=== PATIENT | female | born 1980 | race Caucasian/White ===

== ENCOUNTER → 2020-06-14 | Outpatient (CLI) | payer BC, OTHER ==
--- NOTE | 2020-06-15 08:22 | MM ---
Reason for exam: screening (asymptomatic). Baseline mammogram. History: Taking estrogen beginning at age 40. Taking progesterone beginning at age 40. Physical Findings: Nurse did not find any significant physical abnormalities on exam. MG Screening Mammo w CAD Bilateral CC and MLO view(s) were taken. The breast tissue is heterogeneously dense. This may lower the sensitivity of mammography. Focal asymmetry outer lower left breast posterior third position. These results were verbally communicated with the patient and result sheet given to the patient on 06/14/20. ASSESSMENT: Incomplete: need additional imaging evaluation, BI-RAD 0 RECOMMENDATION: Special view mammogram of the left breast.
--- NOTE | 2020-06-15 08:24 | MM ---
Reason for exam: additional evaluation requested from abnormal screening. History: Taking estrogen beginning at age 40. Taking progesterone beginning at age 40. Physical Findings: Breast exam preformed at baseline screening. MG Work Up Mamm w CAD LT Spot compression CC, spot compression MLO, and LM view(s) were taken of the left breast. The breast tissue is heterogeneously dense. This may lower the sensitivity of mammography. Focal asymmetry is less conspicuous. Ultrasound is recommended 6 o'clock left breast 8cm from nipple. These results were verbally communicated with the patient and result sheet given to the patient on 06/14/20. ASSESSMENT: Incomplete: need additional imaging evaluation, BI-RAD 0 RECOMMENDATION: Ultrasound of the left breast.
--- NOTE | 2020-06-15 08:37 | USB ---
Reason for exam: additional evaluation requested from abnormal screening. History: Taking estrogen beginning at age 40. Taking progesterone beginning at age 40. US Breast Workup Limited LT Technologist: Estrella Serrano Left limited breast ultrasound including focal area of concern, retroareolar and axilla demonstrates a 0.5 x 0.9 x 0.4cm cystic, septated lesion at 5 o'clock and duct ectasia at the nipple. Scanned 3-6 o'clock. These results were verbally communicated with the patient and result sheet given to the patient on 06/14/20. ASSESSMENT: Probably benign, BI-RAD 3 RECOMMENDATION: Follow-up diagnostic mammogram and ultrasound of the left breast in 6 months.
== END | disposition home or self-care (01) ==
LOC: RADMAMWWP 14:20
PROVIDERS: ATTEND Obstetrics & Gynecology
DX: Z12.31 Encounter for screening mammogram for malignant neoplasm of breast (principal); R92.2 Inconclusive mammogram; R92.8 Other abnormal and inconclusive findings on diagnostic imaging of breast
CPT/HCPCS: 77065; 77067

== ENCOUNTER → 2020-12-13 | Outpatient (CLI) | payer BC ==
[2020-12-13 11:47] LABS: Basophils % (A) 1 %; Eosinophils # (A) 0.1 k/uL (0-0.7); Eosinophils % (A) 1 %; HCT 40.8 % (34.0-46.0); HGB 13.4 gm/dL (11.4-16.0); Lymphocytes # (A) 1.4 k/uL (1.0-4.8); Lymphocytes % (A) 22 %; MCH 29.3 pg (25.0-35.0); MCHC 32.9 g/dL (31.0-37.0); MCV 89.1 fL (80.0-100.0); Mean Platelet Volume 7.4; Monocytes # (A) 0.4 k/uL (0-1.0); Monocytes % (A) 6 %; Neutrophils # (A) 4.2 k/uL (1.3-7.7); Neutrophils % (A) 68 %; Platelet Count 420 k/uL (150-450); RBC 4.58 m/uL (3.80-5.40); RDW 13.4 % (11.5-15.5); WBC 6.2 k/uL (3.8-10.6)
[2020-12-13 11:58] LABS: African American GFR (CKD) >90 (>60 ml/min/1.73 sqM); Anion Gap 9 mmol/L; Blood Urea Nitrogen 8 mg/dL (7-17); Calcium 8.9 mg/dL (8.4-10.2); Carbon Dioxide 22 mmol/L (22-30); Chloride 108 mmol/L (98-107); Glucose 82 mg/dL (74-99); Non-African American GFR(CKD) >90 (>60 ml/min/1.73 sqM); Potassium 4.2 mmol/L (3.5-5.1); Sodium 139 mmol/L (137-145)
== END | disposition home or self-care (01) ==
LOC: LABPAT 10:25
PROVIDERS: ATTEND Obstetrics & Gynecology
DX: Z01.812 Encounter for preprocedural laboratory examination (principal)
CPT/HCPCS: 80048; 85025; 86850; 86900; 86901

== ENCOUNTER 2020-12-21 05:35 | Observation (INO) | payer BC, OTHER ==
[2020-12-19 13:45] VITALS: BMI 26.2
--- NOTE | 2020-12-20 20:04 | P.HPOB ---
History of Present Illness H&P Date: 12/20/20 Chief Complaint: BRIGITTE III, Pelvic pain, uterine prolapse, rectocele This is a 40 y.o. female, 4, para 1, who presents for total vaginal hysterectomy with posterior vaginal colporrhaphy due to BRIGITTE III on colposcopy along with 1st degree uterine prolapse, symptomatic 2nd to 3rd degree rectocele, and pelvic pain. She has also consented to possible total abdominal hysterectomy with bilateral salpingectomy, possible bilateral oophorectomy. She complains of heavy irregular menses and pelvic pain. Her pelvic ultrasound showed uterus measuring 8 x 5.1 x 4.5 cm and left ovary with small simple cyst. She also complains of hot flashes, low back pain and anxiety. Her last pap showed ASCUS with +HR HPV and colposcopy showed BRIGITTE III. OB Hx: . History of 1 vaginal delivery. History of 2 miscarriages and 1 termination. 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 Not currently sexually active. Social Hx: Single. 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 Review of Systems Constitutional: Reports night sweats, Denies chills, Denies fever Eyes: denies blurred vision, denies pain Ears, nose, mouth and throat: Reports headache, Denies sore throat Cardiovascular: Denies chest pain, Denies shortness of breath Respiratory: Denies cough Gastrointestinal: Denies abdominal pain, Denies diarrhea, Denies nausea, Denies vomiting Genitourinary: Reports dysmenorrhea, Reports menorrhagia, Reports pelvic pain, Reports prolapse symptoms, Reports urinary frequency Menstruation: Reports menses variable, Reports period heavy Musculoskeletal: Reports low back pain Integumentary: Denies pruritus, Denies rash Neurological: Denies numbness, Denies weakness Psychiatric: Reports anxiety, Reports depression, Reports difficulty concentrating, Reports insomnia, Reports irritability, Reports mood swings Endocrine: Reports fatigue, Reports flushing Past Medical History Past Medical History: GERD/Reflux Additional Past Medical History / Comment(s): migraines, pt states dr checking into ? seizures., Hx of COVID 11/22/20-states fatigued breathing since-was on steroids., back pain. History of Any Multi-Drug Resistant Organisms: None Reported Additional Past Surgical History / Comment(s): d & c, colonoscopy Past Anesthesia/Blood Transfusion Reactions: No Reported Reaction Past Psychological History: Anxiety, Bipolar, Depression Smoking Status: Former smoker Past Alcohol Use History: None Reported Additional Past Alcohol Use History / Comment(s): quit smoking 5 years ago, social smoker. Past Drug Use History: Marijuana Additional Drug Use History / Comment(s): edible marijuana for anxiety. - Past Family History Father Family Medical History: Cancer Additional Family Medical History / Comment(s): skin cancer Mother Family Medical History: Cancer Additional Family Medical History / Comment(s): skin cancer Medications and Allergies Home Medications Medication Instructions Recorded Confirmed Type Acetaminophen [Tylenol Extra 500 mg PO DIRECTED 12/19/20 12/21/20 History Strength] Adrenal Support Supplement 200 mg PO DAILY 12/19/20 12/21/20 History Ascorbic Acid [Vitamin C] 500 mg PO DAILY 12/19/20 12/21/20 History Cholecalciferol (Vitamin D3) 250 mcg PO DAILY 12/19/20 12/21/20 History [Vitamin D3 (125 MCG = 5,000 IU)] Levocetirizine Dihydrochloride 5 mg PO DAILY 12/19/20 12/21/20 History [Xyzal] Progesterone, Micronized 2.5 mg PO HS 12/19/20 12/21/20 History [Progesterone] Red Yeast Rice 1,200 mg PO DAILY 12/19/20 12/21/20 History Topiramate [Topamax] 50 mg PO HS 12/19/20 12/21/20 History estradioL [estradioL (Once Weekly) 1 patch TRANSDERM WEEKLY 12/19/20 12/21/20 History 0.025 mg Patch] lamoTRIgine [LaMICtal] 250 mg PO HS 12/19/20 12/21/20 History Allergies Allergy/AdvReac Type Severity Reaction Status Date / Time No Known Allergies Allergy Verified 12/21/20 06:38 Exam Osteopathic Statement: *. No significant issues noted on an osteopathic structural exam other than those noted in the History and Physical/Consult. HEENT: within normal limits Heart: regular rate and rhythm Lungs: clear to auscultation bilaterally Abdomen: soft, non-tender Pelvic: uterus retroverted, grade 1 uterine prolapse, no adnexal masses or tenderness, grade 2-3 rectocele Extremities: neg. Wanda's Assessment and Plan (1) BRIGITTE III (cervical intraepithelial neoplasia III) Current Visit: No Status: Acute Code(s): D06.9 - CARCINOMA IN SITU OF CERVIX, UNSPECIFIED SNOMED Code(s): 81919110 (2) Uterine prolapse Current Visit: No Status: Acute Code(s): N81.4 - UTEROVAGINAL PROLAPSE, UNSPECIFIED SNOMED Code(s): 07774098 (3) Rectocele Current Visit: No Status: Acute Code(s): N81.6 - RECTOCELE SNOMED Code(s): 6260427 (4) Pelvic pain Current Visit: No Status: Acute Code(s): R10.2 - PELVIC AND PERINEAL PAIN SNOMED Code(s): 68869352 Plan: Proceed with total vaginal hysterectomy with posterior vaginal coloporrhaphy, possible total abdominal hysterectomy with bilateral salpingectomy, possible bilateral oophorectomy. I have discussed the risks, benefits, and alternative therapies for the above-mentioned procedure and for both sedation/anesthesia as well as necessary blood products administration, if indicated, as they pertain to this patient. The patient has indicated her understanding and acceptance of the risks and procedures discussed.
[2020-12-21] MEDS ORDERED: ONDANSETRON 4 MG/2 ML VIAL IVP ONE (05:56)
[2020-12-21] MEDS ORDERED: DEXAMETHASONE SOD PHOSPHATE 4 MG/ML 1 ML VIAL IV ONE (05:56)
[2020-12-21] MEDS ORDERED: LIDOCAINE 1% (10MG/ML) FOR IV START INTRADERMA PRN (05:56)
[2020-12-21] MEDS ORDERED: MIDAZOLAM 2 MG/2 ML VIAL IV PRN (05:56)
[2020-12-21] MEDS: LACTATED RINGERS 1,000 ML IV SCH (06:47)
[2020-12-21] MEDS ORDERED: SCOPOLAMINE 1.5MG/72HR PATCH TRANSDERM ONE (07:06)
[2020-12-21] MEDS ORDERED: SUCCINYLCHOLINE CHLORIDE 100 MG/5 ML SYR IV ONE (07:28)
[2020-12-21] MEDS ORDERED: MIDAZOLAM 2 MG/2 ML VIAL ONE (07:28)
[2020-12-21] MEDS ORDERED: MORPHINE SULFATE (PF) 0.3 MG/0.3 ML SYR ONE (07:28)
[2020-12-21] MEDS ORDERED: PROPOFOL 10 MG/ML 20 ML VIAL IV ONE (07:28)
[2020-12-21] MEDS ORDERED: fentaNYL (PF) 50 MCG/ML 2 ML AMP ONE (07:28)
[2020-12-21] MEDS ORDERED: BACITRACIN ZINC 500 UNIT/GM OINT 28.4 GM TUBE TOPICAL ONE ×2 (07:29→08:01)
[2020-12-21] MEDS ORDERED: EPINEPHrine 1 MG in SODIUM CHLORIDE 0.9% 150 ML IV ONE (08:01)
--- NOTE | 2020-12-21 08:53 | P.OP ---
Date of Procedure: 12/21/20 Preoperative Diagnosis: 1. BRIGITTE-3. 2. First-degree uterine prolapse. 3. Second to third degree rectocele. 4. Pelvic pain. Postoperative Diagnosis: Same Procedure(s) Performed: Total vaginal hysterectomy with posterior vaginal colporrhaphy Anest[facility] Surgeon: Shannan Worley Product Development Consultant #1: Flo Ramos Estimated Blood Loss (ml): 25 Pathology: other (Uterus with cervix and vaginal mucosa) Condition: stable Disposition: floor Indications for Procedure: This is a 40 y.o. female, 4, para 1, who presents for total vaginal hysterectomy with posterior vaginal colporrhaphy due to BRIGITTE III on colposcopy along with 1st degree uterine prolapse, symptomatic 2nd to 3rd degree rectocele, and pelvic pain. She has also consented to possible total abdominal hysterectomy with bilateral salpingectomy, possible bilateral oophorectomy. She complains of heavy irregular menses and pelvic pain. Her pelvic ultrasound showed uterus measuring 8 x 5.1 x 4.5 cm and left ovary with small simple cyst. She also complains of hot flashes, low back pain and anxiety. Her last pap showed ASCUS with +HR HPV and colposcopy showed BRIGITTE III. Operative Findings: Grade 1 uterine prolapse is noted. Uterus is retroverted. Both ovaries and tubes are visualized and appear normal. Grade 3 rectocele is also noted. Description of Procedure: The patient is taken the operating room where she is placed in the dorsal lithotomy position. She is prepped and draped in the normal sterile fashion. Next a weighted speculum was placed in the patient's vagina and a right angle retractor was used to visualize the cervix. The anterior lip of the cervix is grasped with a single-tooth tenaculum. Next the cervix was circumferentially injected with one amp of epinephrine to 150 mL of normal saline. Next the cervix was circumscribed with a scalpel. The vaginal mucosa was pushed away from the cervix with a sponge. Next the uterosacral ligaments are clamped on either side with a Chandni clamp, cut with Billy scissors, and then sutured with 0 Vicryl suture in a Chandni transfixion stitch and then held on either side with a straight hemostat. Next the posterior peritoneal reflection was identified and entered sharply with Billy scissors. The edges of the vaginal mucosa was then tagged with 0 Vicryl suture and held with a curved hemostat for identification. Next a longbilled weighted speculum was placed through the posterior peritoneal reflection. Next the cardinal ligaments were clamped on either side with Chandni clamps, cut with Billy scissors, and then sutured with 0 Vicryl suture in Chandni transfixion stitches and cut. Next the vesicouterine peritoneum reflection is identified and entered sharply with Metzenbaum scissors. A right angle bladder retractor is then used to retract the bladder. The uterine arteries are clamped on either side with Chandni clamps, cut with Billy scissors, and then sutured with 0 Vicryl suture in Chandni transfixion stitches. The round ligament is also clamped on either side with a Chandni clamp, cut with Billy scissors, and sutured with 0 Vicryl suture in Chandni transfixion stitches. Next the uterine ovarian ligament and tube were clamped on either side with a Chandni clamp, cut with Iblly scissors, and then sutured with 0 Vicryl suture in a [id number] stitch, flashed, and then free tied with another suture of 0 Vicryl suture. These p edicles were held with a straight Ronda for identification. The uterus is removed from the field. Good hemostasis is noted. Both tubes and ovaries are visualized and appear normal. Next the peritoneum is closed with 0 Vicryl suture in a pursestring fashion incorporating all the held ligaments. Next the uterine ovarian ligaments are tied together in the middle and cut. Next the vaginal cuff is sutured with 0 Vicryl suture in a running locked fashion. The uterosacral ligaments were also tied together in the midline prior to completely closing the vaginal cuff. Excellent hemostasis is noted. next attention is turned to the posterior repair. 2 Allis clamps were used to grasp the introitus at the 4 and 8 o'clock position. Injection of the same epinephrine solution is injected underneath the vaginal mucosa upwards towards the vaginal cuff. A small triangular piece of tissue was removed from between the Allis clamps with the scalpel on the perineum. Next the Metzenbaum scissors were used to dissect underneath the vaginal mucosa upwards towards the cuff. The edges of the vaginal mucosa are held with Allis clamps. Next the rectocele was dissected away from the vaginal mucosa with sharp and blunt dissection. The rectocele is reduced with 0 Vicryl suture in interrupted [id number] stitches. The edges of the vaginal mucosa are trimmed. The vaginal mucosa was then sutured with 0 Vicryl suture in a running locked fashion up to the introitus and then brought underneath the skin in a subcutaneous fashion on the muscle and then on a subcuticular fashion on the skin up to the introitus and tied. One interrupted stitches also placed on the perineum for hemostasis. The Lock catheter is inserted and clear urine is noted. Next the vagina is packed with one-inch io doform gauze with bacitracin ointment. All sponge and needle counts are correct and the patient is then taken to recovery room in stable condition.
[2020-12-21] MEDS: HYDROmorphone 0.5 MG/0.5 ML SYRINGE IVP PRN ×3 (09:10→09:43)
[2020-12-21] MEDS ORDERED: KETOROLAC 15 MG/ML 1 ML VIAL IVP ONE (09:22)
[2020-12-21] MEDS ORDERED: KETOROLAC 15 MG/ML 1 ML VIAL ONE (09:24)
[2020-12-21] MEDS ORDERED: ACETAMINOPHEN IV (For NPO) 1,000 MG/100 ML VIAL IVPB ONE (09:43)
[2020-12-21] MEDS ORDERED: ZOLPIDEM 5 MG TAB PO PRN (10:17)
[2020-12-21] MEDS ORDERED: ONDANSETRON 4 MG/2 ML VIAL IVP PRN (10:17)
[2020-12-21] MEDS ORDERED: diphenhydrAMINE 50 MG/ML 1 ML VIAL IVP PRN (10:17)
[2020-12-21] MEDS ORDERED: SIMETHICONE 80 MG CHEWABLE PO PRN (10:17)
[2020-12-21] MEDS ORDERED: IBUPROFEN 600 MG TAB PO PRN (10:17)
[2020-12-21] MEDS ORDERED: METOCLOPRAMIDE 5 MG/ML 2 ML VIAL IVP PRN (10:17)
[2020-12-21 11:46] VITALS: RESP 16
[2020-12-21] MEDS: KETOROLAC 15 MG/ML 1 ML VIAL IVP PRN ×2 (15:24→21:12)
--- NOTE | 2020-12-21 20:37 | P.ANPRN ---
Procedure Note - Anesthesia - Epidural/Spinal Spinal Time Out Performed: Yes Date of Procedure: 12/21/20 Procedure Start Time: 07:03 Procedure Stop Time: 07:06 Location of Patient: PreOp Indication: Acute Post-Operative Pain, Requested by Surgeon Sedation Type: Sedate with meaningful contact maintained Preparation: Sterile Prep Position: Sitting Needle Guage: 25 Blood Aspirated: No Pain Paresthesia on Injection Noted: No Events: Uneventful and Well Tolerated (duramorph 300 mics plus fetanyl 25 mics)
[2020-12-21] MEDS ORDERED: NON FORMULARY DRUG (Progesterone, Micronized [Progesterone] 100 MG Capsule) PO SCH (21:00)
[2020-12-21] MEDS ORDERED: lamoTRIgine 100 MG TAB PO SCH (21:00)
[2020-12-21] MEDS ORDERED: TOPIRAMATE 25 MG TAB PO SCH (21:00)
[2020-12-21] MEDS: SENNOSIDES-DOCUSATE SODIUM 1 EACH TAB PO SCH (21:21)
[2020-12-22] MEDS: KETOROLAC 15 MG/ML 1 ML VIAL IVP PRN ×2 (03:46→09:58)
[2020-12-22 03:58] VITALS: TEMP 98
[2020-12-22] MEDS: LACTATED RINGERS 1,000 ML IV SCH (04:23)
[2020-12-22 04:25] VITALS: BP 106/62; PULSE 67
[2020-12-22 06:58] LABS: Basophils % (A) 0 %; Eosinophils # (A) 0.1 k/uL (0-0.7); Eosinophils % (A) 1 %; HCT 33.8 % (34.0-46.0); HGB 11.4 gm/dL (11.4-16.0); Lymphocytes % (A) 24 %; MCH 29.8 pg (25.0-35.0); MCHC 33.7 g/dL (31.0-37.0); MCV 88.6 fL (80.0-100.0); Mean Platelet Volume 6.4; Monocytes # (A) 0.5 k/uL (0-1.0); Monocytes % (A) 6 %; Neutrophils # (A) 5.7 k/uL (1.3-7.7); Neutrophils % (A) 67 %; Platelet Count 335 k/uL (150-450); RBC 3.81 m/uL (3.80-5.40); RDW 13.7 % (11.5-15.5); WBC 8.5 k/uL (3.8-10.6)
[2020-12-22] MEDS ORDERED: LORATADINE 10 MG TAB PO SCH (09:00)
[2020-12-22] MEDS: SENNOSIDES-DOCUSATE SODIUM 1 EACH TAB PO SCH (09:06)
[2020-12-22] MEDS ORDERED: ACETAMINOPHEN TAB 325 MG TAB PO PRN (09:09)
--- NOTE | 2020-12-22 11:07 | P.PN ---
Progress Note - Text 12/22/20 630am 40-year-old female status post vaginal hysterectomy, patient had spinal Duramorph, patient was seen and evaluated for postop pain control. Patient had a VAS of 0 with no complains of nausea vomiting. Patient did have pruritus which should resolve by the end of the day. Doing very well
--- NOTE | 2020-12-22 11:10 | P.DS ---
Providers Date of admission: 12/21/20 22:35 Expected date of discharge: 12/22/20 Attending physician: Shannan Worley Primary care physician: Stephanie Rodríguez DC - Discharge Diagnosis(es) (1) BRIGITTE III (cervical intraepithelial neoplasia III) Current Visit: No Status: Acute (2) Uterine prolapse Current Visit: No Status: Acute (3) Rectocele Current Visit: No Status: Acute (4) Pelvic pain Current Visit: No Status: Acute Hospital Course: This is a 40-year-old female who underwent a total vaginal hysterectomy with posterior vaginal colporrhaphy on 12/21/2020. Postoperatively she has done well. She did have an episode of lower blood pressure last night but this was completely asymptomatic. She has been ambulating and has urinated without diff iculty. She is passing some flatus but no bowel movement yet. Her bleeding is very minimal vaginally. Pain is been fairly well-controlled. Vital signs are stable. Abdomen is soft with positive bowel sounds 4. Breanne-pad shows very scant serosanguineous discharge. Impression is status post total vaginal hysterectomy with posterior vaginal colporrhaphy postoperative day #1. Plan is to discharge home later today. Routine postoperative instructions are given. She will be given a prescription for ibuprofen 600 mg and is encouraged to alternate with Tylenol as needed. She is advised to follow-up in the office in approximately 1 week for a postoperative check. She is advised to call the office if she has any further questions or concerns prior to her appointment time. Procedures: Total vaginal hysterectomy with posterior vaginal colporrhaphy on 12/21/2020 Patient Condition at Discharge: Stable Plan - Discharge Summary Discharge Rx Participant: Yes New Discharge Prescriptions: New Ibuprofen [Motrin] 600 mg PO Q6HR PRN #60 tab PRN Reason: Mild Discomfort Continue Ascorbic Acid [Vitamin C] 500 mg PO DAILY Acetaminophen [Tylenol Extra Strength] 500 mg PO DIRECTED Topiramate [Topamax] 50 mg PO HS lamoTRIgine [LaMICtal] 250 mg PO HS estradioL [estradioL (Once Weekly) 0.025 mg Patch] 1 patch TRANSDERM WEEKLY Levocetirizine Dihydrochloride [Xyzal] 5 mg PO DAILY Red Yeast Rice 1,200 mg PO DAILY Cholecalciferol (Vitamin D3) [Vitamin D3 (125 MCG = 5,000 IU)] 250 mcg PO DAILY Adrenal Support Supplement 200 mg PO DAILY Discontinued Progesterone, Micronized [Progesterone] 2.5 mg PO HS Discharge Medication List Acetaminophen [Tylenol Extra Strength] 500 mg PO DIRECTED 12/19/20 [History] Adrenal Support Supplement 200 mg PO DAILY 12/19/20 [History] Ascorbic Acid [Vitamin C] 500 mg PO DAILY 12/19/20 [History] Cholecalciferol (Vitamin D3) [Vitamin D3 (125 MCG = 5,000 IU)] 250 mcg PO DAILY 12/19/20 [History] Levocetirizine Dihydrochloride [Xyzal] 5 mg PO DAILY 12/19/20 [History] Red Yeast Rice 1,200 mg PO DAILY 12/19/20 [History] Topiramate [Topamax] 50 mg PO HS 12/19/20 [History] estradioL [estradioL (Once Weekly) 0.025 mg Patch] 1 patch TRANSDERM WEEKLY 12/19/20 [History] lamoTRIgine [LaMICtal] 250 mg PO HS 12/19/20 [History] Ibuprofen [Motrin] 600 mg PO Q6HR PRN #60 tab 12/22/20 [Rx] Follow up Appointment(s)/Referral(s): Shannan Worley DO [Doctor of Osteopathic Medicine] - 1 Week Activity/Diet/Wound Care/Special Instructions: No heavy lifting. May shower, but no tub baths for at least 1 week. No intercourse for 6 weeks. Diet as tolerated. Discharge Disposition: HOME SELF-CARE
== END 2020-12-22 13:00 | disposition home or self-care (01) ==
LOC: OR 05:35 → 4FBP 08:50 → OR 22:29 → 4FBP 22:35
PROVIDERS: ADMIT Obstetrics & Gynecology; ATTEND Obstetrics & Gynecology
DX: D06.9 Carcinoma in situ of cervix, unspecified (principal); N81.2 Incomplete uterovaginal prolapse; N92.6 Irregular menstruation, unspecified; N94.6 Dysmenorrhea, unspecified; N83.292 Other ovarian cyst, left side; K21.9 Gastro-esophageal reflux disease without esophagitis; G43.909 Migraine, unspecified, not intractable, without status migrainosus; R56.9 Unspecified convulsions; R10.2 Pelvic and perineal pain; R23.2 Flushing; F31.9 Bipolar disorder, unspecified; Z79.890 Hormone replacement therapy; F41.9 Anxiety disorder, unspecified; Z20.822 Contact with and (suspected) exposure to COVID-19; Z79.899 Other long term (current) drug therapy; Z87.891 Personal history of nicotine dependence; Z86.16 Personal history of COVID-19; Z80.8 Family history of malignant neoplasm of other organs or systems; L29.9 Pruritus, unspecified
CPT/HCPCS: 58260; 57250; 62322; 81025; 85025; 88309; 87635; G0378 ×2; J2250; J0171; J1200; J1100; J0690; J2405; J2274; J3010; J0131; J1885 ×2; J0330; J2704; J1170

== ENCOUNTER → 2021-05-11 | Outpatient (CLI) | payer BC | END | disposition home or self-care (01) | LOC: RADMAMWWP 13:46 | PROVIDERS: ATTEND Obstetrics & Gynecology | DX: R92.8 Other abnormal and inconclusive findings on diagnostic imaging of breast (principal) | CPT/HCPCS: 77061; 77065 ==

== ENCOUNTER → 2022-12-16 | Outpatient (CLI) | payer OTHER ==
--- NOTE | 2022-12-16 11:01 | XR ---
EXAMINATION TYPE: XR wrist complete LT DATE OF EXAM: 12/16/2022 10:56 AM INDICATION: Patient age:Female; 42 years old; Reason for study: [id number] CRUSING INJURY FINGERS [id number] WRIST SPRA; [facility]. COMPARISON: Left hand and wrist radiograph 12/09/2022 TECHNIQUE: 4 views of the left wrist. Frontal, navicular, lateral, and oblique. 3 views of the left hand including frontal, lateral, and oblique projections. FINDINGS: No acute osseous pathology, joint dislocation, or joint effusion. No evidence of any soft tissue swelling is seen. No periosteal reaction. No radiopaque foreign body. IMPRESSION: No acute osseous pathology. No evidence of periosteal reaction to suggest healing fracture.
== END | disposition home or self-care (01) ==
LOC: RADXRMAIN 10:15
PROVIDERS: ATTEND Emergency Medicine
DX: S67.10XD Crushing injury of unspecified finger(s), subsequent encounter (principal); S63.502D Unspecified sprain of left wrist, subsequent encounter; X58.XXXD Exposure to other specified factors, subsequent encounter